=== PATIENT | female | born 1990 | race Caucasian/White ===

== ENCOUNTER 2022-10-15 16:04 | Observation (INO) | payer BC ==
[~2022-10-15] VITALS: Ht 165.1 cm; Wt 89.8 kg
[2022-10-15] MEDS ORDERED: PREN1TAB23 PO (16:39)
[2022-10-15] MEDS ORDERED: FERR325T6 PO (16:40)
== END 2022-10-15 20:43 | disposition home or self-care (01) ==
LOC: 8 EST LDRP 16:04
PROVIDERS: ADMIT Obstetrics & Gynecology; ATTEND Obstetrics & Gynecology
DX: O99.891 Other specified diseases and conditions complicating pregnancy (principal); M54.50 Low back pain, unspecified; Z3A.31 31 weeks gestation of pregnancy
CPT/HCPCS: 59025; 76805; 76818; G0378

== ENCOUNTER 2022-12-08 04:26 | Inpatient (IN) | payer BC ==
[~2022-12-08] VITALS: Ht 165.1 cm; Wt 88.5 kg
[~2022-12-08 04:26] MED LIST: FERR325T6 PO; PREN1TAB23 PO
[2022-12-08] MEDS ORDERED: MEPERIDINE HCL/PF 25MG/ML CPJ IV ONE (05:15)
[2022-12-08] MEDS ORDERED: OXYTOCIN 30 UNITS/500ML NS PMX 500 ML IV SCH ×2 (05:15→07:30)
[2022-12-08] MEDS ORDERED: METHYLERGONOVINE MALEATE 0.2 MG/ML IM PRN ×2 (05:15→07:30)
[2022-12-08] MEDS ORDERED: FENTANYL CITRATE/PF 50MCG/ML 2ML VIAL IV ONE (05:15)
[2022-12-08] MEDS ORDERED: LACTATED RINGERS 1,000 ML IV SCH (05:15)
[2022-12-08] MEDS ORDERED: PENICILLIN G POTASSIUM 5 MMU in DEXT 5% WATER 100 ML IV NR (05:15)
[2022-12-08] MEDS ORDERED: MISOPROSTOL 100MCG TABLET VG SCH (05:15)
[2022-12-08] MEDS ORDERED: LIDOCAINE HCL 1% 20ML VIAL (Pyxis) INJ INFIL SCH (05:15)
[2022-12-08] MEDS ORDERED: NALOXONE HCL 0.4 MG/ML 1ML VIAL IM PRN (05:15)
[2022-12-08] MEDS ORDERED: CARBOPROST TROMETHAMINE 250 MCG/ML AMPUL IM PRN (05:15)
[2022-12-08] MEDS ORDERED: IBUPROFEN 400MG TABLET PO PRN (07:30)
[2022-12-08] MEDS ORDERED: RHO(D) IMMUNE GLOBULIN 300 MCG/SYR IM PRN (07:30)
[2022-12-08] MEDS ORDERED: BISACODYL 10MG SUPP PR PRN (07:30)
[2022-12-08] MEDS ORDERED: LANOLIN OINT 7GM TUBE TOP PRN (07:30)
[2022-12-08 07:57] LABS: HEMATOCRIT. 33.8 % (36.0-48.0); HEMOGLOBIN. 11.7 g/dL (12.0-16.0); MEAN CORPUSCULAR HEMOGLOBIN 29.9 pg (28.0-32.0); MEAN CORPUSCULAR VOLUME 86.1 fL (81.0-99.0); MEAN PLATELET VOLUME 7.3 fl (7.4-10.4); PLATELET 292 x1000/uL (130-400); RED BLOOD CELL COUNT 3.92 mill/uL (4.2-5.4); RED CELL DISTRIBUTION WIDTH 14.7 % (11.6-14.6)
[2022-12-08 08:08] LABS: INR 0.9; PARTIAL THROMBOPLASTIN TIME 24.5 sec (23.4-31.0); PROTHROMBIN TIME 9.6 sec (9.6-11.0)
[2022-12-08] MEDS: IBUPROFEN 800MG TABLET PO PRN ×3 (08:29→19:59)
[2022-12-08 09:00] VITALS: BP 111/54
[2022-12-08] MEDS: PRENATAL VIT/FE FUMARATE/FA TABLET PO SCH (09:00)
[2022-12-08 09:22] LABS: HEPATITIS B SURFACE ANTIGEN NEGATIVE
[2022-12-08] MEDS ORDERED: PENICILLIN G POTASSIUM 2.5 MMU in DEXTROSE 5% WATER 50 ML IV SCH (09:30)
[2022-12-08 10:00] VITALS: BP 112/61
[2022-12-08 11:00] VITALS: BP 108/61
[2022-12-08 11:37] LABS: CLARITY URINE TURBID (CLEAR); COLOR URINE RED (YELLOW); KETONES URINE NEGATIVE (NEGATIVE); LEUKOCYTE ESTERASE URINE 2+ (NEGATIVE); NITRITE URINE NEGATIVE (NEGATIVE); OCCULT BLOOD URINE 3+ (NEGATIVE); PROTEIN URINE 2+ (NEGATIVE); SPECIFIC GRAVITY URINE 1.017 (1.005-1.030); UROBILINOGEN URINE 0.2 E.U./dL (0.2-1.0)
[2022-12-08 11:53] LABS: PLATELET ESTIMATE NORMAL
[2022-12-08 11:58] LABS: *AMPHETAMINES SCREEN URINE NEGATIVE (NEGATIVE); *BARBITURATES SCREEN URINE NEGATIVE (NEGATIVE); *BENZODIAZEPINES SCREEN URINE NEGATIVE (NEGATIVE); *COCAINE SCREEN URINE NEGATIVE (NEGATIVE); CANNABINOID URINE SCREEN NEGATIVE (NEGATIVE); METHADONE URINE SCREEN NEGATIVE (NEGATIVE); OPIATES URINE SCREEN NEGATIVE (NEGATIVE); PHENCYCLIDINE URINE SCREEN NEGATIVE (NEGATIVE)
[2022-12-08] MEDS ORDERED: BENZOCAINE/LANOLIN/ALOE VERA SPRAY TOP PRN (13:30)
[2022-12-08] MEDS ORDERED: GLYCERIN/WITCH HAZEL LEAF MEDICATED PAD TOP PRN (13:30)
[2022-12-08 16:17] VITALS: BP 102/61
[2022-12-08 19:30] VITALS: BP 117/70
[2022-12-09 04:00] VITALS: BP 108/50
[2022-12-09 06:28] LABS: BASOPHILS % 0.1 % (0.0-2.0); EOSINOPHILS % 0.8 % (0.0-5.0); HEMATOCRIT. 27.7 % (36.0-48.0); HEMOGLOBIN. 9.6 g/dL (12.0-16.0); MEAN CORPUSCULAR HEMOGLOBIN 30.1 pg (28.0-32.0); MEAN CORPUSCULAR VOLUME 86.7 fL (81.0-99.0); MEAN PLATELET VOLUME 7.6 fl (7.4-10.4); MONOCYTES % 8.7 % (2.0-8.0); NEUTROPHILS % 70.4 % (40.0-76.0); PLATELET 235 x1000/uL (130-400); RED BLOOD CELL COUNT 3.19 mill/uL (4.2-5.4); RED CELL DISTRIBUTION WIDTH 14.8 % (11.6-14.6)
[2022-12-09 08:00] VITALS: BP 106/67
[2022-12-09] MEDS: IBUPROFEN 800MG TABLET PO PRN (08:14)
[2022-12-09] MEDS: PRENATAL VIT/FE FUMARATE/FA TABLET PO SCH (08:14)
[2022-12-09] MEDS ORDERED: IBUP-2030 PO (10:10)
== END 2022-12-09 12:35 | disposition home or self-care (01) | DRG 807 ==
LOC: 8 EST LDRP 04:26 → OBSVTOIN 04:26 → 8EST 08:55
PROVIDERS: ADMIT Obstetrics & Gynecology; ATTEND Obstetrics & Gynecology
PROC: 10E0XZZ Delivery of Products of Conception, External Approach (ICD-10-PCS; principal; 2022-12-08)
PROC: 0HQ9XZZ Repair Perineum Skin, External Approach (ICD-10-PCS; 2022-12-08)
DX: O32.6XX0 Maternal care for compound presentation, not applicable or unspecified (principal); Z37.0 Single live birth; Z20.822 Contact with and (suspected) exposure to COVID-19; O69.81X0 Labor and delivery complicated by cord around neck, without compression, not applicable or unspecified; O70.0 First degree perineal laceration during delivery; Z3A.39 39 weeks gestation of pregnancy
CPT/HCPCS: 36415; 80305; 81003; 85025; 86592; 86703; 86762; 86850; 86900; 87340; 87426; 99281; G0378; J2175; J2540; J3490; J7060; J7120; J2590